=== PATIENT | female | born 1965 | race Caucasian/White ===

== ENCOUNTER 2017-02-21 18:50 | Emergency (ER) | payer SELFPAY ==
[~2017-02-21] VITALS: Ht 175.3 cm; Wt 72.8 kg
[~2017-02-21 18:50] MED LIST: ALPR1T PO; AMIT100T2 PO; AMOX500C2 PO; BIOT800T PO; CITA10TA70 PO; FLUO20CA42 PO; KETO-22 PO; LEVO75TA6; LEVO88TA54 PO; MIRT30TA6 PO; MRTZ30T1 PO; NF-CIPDEC OT; OMEP40CA36 PO; PNV1TABL9 PO; PROP1TAB77 PO; TEMA30CA6 PO; [UNRECOGNIZED DRUG - OTHER] LEFT EAR
--- NOTE | 2017-02-21 20:26 | ED EENT ---
History of Present Illness General Chief Complaint: General Problems/Pain Stated Complaint: RESTLESSNESS/L EAR DRAINAGE/BLOOD/FOUL ODOR Source: patient, RN notes reviewed Exam Limitations: no limitations History of Present Illness Time seen by provider: 20:26 Initial Comments As above and below. Patient relates a long hx of ear problems, Her ENT is apparently @ [facility]. Apparently has had her left TM patched in the past. Timing/Duration: gradual, last week Severity: moderate Location: ear (L) Prearrival Treatment: no prearrival treatment Modifying Factors: Improves With Other (none) Associated Symptoms: ear drainage Allergies and Home Medications Allergies Coded Allergies: codeine (Unverified Allergy, Mild, HIVES, VOMITING, 07/02/10) hydrocodone (Unverified Allergy, Mild, HIVES, VOMITING, 07/02/10) Home Medications Alprazolam 1 Mg Tablet, 1 TAB PO HS, Ref 0 (Reported) Amitriptyline HCl 100 Mg Tablet, 100 MG PO HS, #30 (Reported) Biotin 800 Mcg Tablet, 800 MCG PO DAILY, (Reported) Ciprofloxacin HCl/Dexameth 7.5 Ml Soln, 4 DROPS OT BID for 7 Days, #1 Ref 0 Prescribed by: NASIR TAN on 02/21/172035 Fluoxetine HCl 20 Mg Capsule, 20 MG PO DAILY, (Reported) Levothyroxine Sodium 88 Mcg Tablet, 88 MCG PO DAILY, (Reported) Pnv Cmb#21/Iron/Folic Acid 1 Each Tablet, 1 EACH PO DAILY, (Reported) Review of Systems Constitutional: see HPI Ears: See HPI, Purulent Discharge (left EAC) : No Neurological: See HPI, Other (states her entire body feels restless.) All Other Systems Reviewed Negative Unless Noted: Yes (Negative excepted noted.) Past Skaepek-Ulqpsu-Snumuv Hx Patient Social History Recent Foreign Travel: No Contact w/Someone Who Travel: No Recent Hopitalizations: No Immunizations Up To Date Date of Influenza Vaccine: Aug 24, 2015 Surgeries HX Surgeries: Yes (mastoidectomy) Surgeries: Section, Hysterectomy Respiratory Hx Respiratory Disorders: No Cardiovascular Hx Cardiac Disorders: Yes (mitral valve prolapse) Neurological Hx Neurological Disorders: Yes (tremors) Reproductive System Hx Reproductive Disorders: Yes (HYSTERECTOMY) Sexually Transmitted Disease: No Genitourinary Hx Genitourinary Disorders: Yes (UTI'S) Gastrointestinal Hx Gastrointestinal Disorders: No Musculoskeletal Hx Musculoskeletal Disorders: Yes Musculoskeletal Disorders: Osteoporosis Endocrine Hx Endocrine Disorders: Yes Endocrine Disorders: Hypothyroidsim HEENT HX ENT Disorders: No Cancer Hx Cancer: No Psychosocial Hx Psychiatric Problems: Yes Behavioral Health Disorders: Anxiety, Depression Blood Transfusions Hx Blood Disorders: No Physical Exam Vital Signs Vital Sign - Last 12Hours 02/21/17 20:24 Temp 98.9 Pulse 71 Resp 16 B/P (MAP) 119/78 Pulse Ox 97 O2 Delivery Room Air General Appearance: WD/WN, no apparent distress Ears: left ear TM dull (left), left ear other (may be leaking around TM attachment to her EAC from approx. 6p-9p) Cardiovascular: regular rate, rhythm Neurologic/Psychiatric: alert, normal mood/affect Skin: warm/dry Progress/Results/Core Measures Progress Note : Progress Note Patient hasn't taken her Elavil for the last week, but this is most likely the reason behind her body feeling restless. Can not just stop these kind of medicines cold turkey. Departure Impression Impression: Primary Impression: Non compliance w medication regimen Additional Impression: Acute exacerbation of chronic otitis media Disposition: 01 HOME, SELF-CARE Condition: Stable Departure-Patient Inst. Decision time for Depature: 20:32 Referrals: [facility] (PCP/Family) Primary Care Physician Patient Instructions: Ear Infections (Otitis Media) (DC), Prescription Drug Withdrawal (DC) Add. Discharge Instructions: All discharge instructions reviewed with patient and/or family. Voiced understanding. NEED TO GET BACK ON YOUR ROUTINE MEDICATIONS DIRECTED. STOPPING THEM COLD TURKEY IS MOST LIKELY THE REASON BEHIND A NUMBER OF YOUR SYMPTOMS. Scripts Ciprofloxacin HCl/Dexameth (Ciprodex Otic Suspension) 7.5 Ml Soln 4 DROPS OT BID for 7 Days, #1 DROPS 0 Refills Prov: NASIR TAN DO 02/21/17 NASIR TAN DO February 21, 2017 20:26
[2017-02-21] MEDS ORDERED: NF-CIPDEC OT (20:36)
[2017-02-21 20:50] VITALS: BP 119/78
== END 2017-02-21 20:50 | disposition home or self-care (01) ==
LOC: EDUNIT# 18:50 → ER 18:52
DX: H66.92 Otitis media, unspecified, left ear (principal); I10 Essential (primary) hypertension; Z79.899 Other long term (current) drug therapy; Z91.14 Patient's other noncompliance with medication regimen
CPT/HCPCS: 99282

== ENCOUNTER → 2019-03-14 | Outpatient (CLI) | payer BC, OTHER | LOC: CARD 12:37 | PROVIDERS: ATTEND Internal Medicine Cardiovascular Disease | DX: R07.89 Other chest pain (principal); E78.2 Mixed hyperlipidemia; I07.1 Rheumatic tricuspid insufficiency; F31.9 Bipolar disorder, unspecified | CPT/HCPCS: 93306; 93351 ==

== ENCOUNTER 2020-11-27 06:47 | Emergency (ER) | payer OTHER ==
[~2020-11-27] VITALS: Ht 170 cm; Wt 54.0 kg
[~2020-11-27 06:47] MED LIST changes: +OMEP40CA27 PO; -OMEP40CA36 PO
[2020-11-27] MEDS ORDERED: KETOROLAC 30 MG/ML VIAL IVP ONE (07:15)
[2020-11-27] MEDS ORDERED: NS IV 1000 ML 1,000 ML IV SCH (07:15)
[2020-11-27] MEDS ORDERED: ONDANSETRON 4 MG/2 ML (SDV) Z0FRAN IVP ONE (07:15)
--- NOTE | 2020-11-27 07:20 | ED Abdominal Pain ---
General Chief Complaint: Abdominal/GI Problems Stated Complaint: ABD PAIN Nursing Triage Note: ARRIVED VIA AMB WITH COMPLAINTS OF RIGHT LOWER ABD PAIN THAT RADIATES INTO BACK X3 DAYS. STATES SHE HAS BEEN RUNNING A LOW GRADE FEVER. Sepsis Screen: No Definite Risk Source of Information: Patient Exam Limitations: No Limitations History of Present Illness Date Seen by Provider: Nov 27, 2020 Time Seen by Provider: 07:10 Initial Comments Patient is a 55-year-old female who presents to the emergency department today with a chief complaint of right flank pain. Patient states onset of symptoms approximately 2 days ago. Patient has had some nausea. She states nothing really makes her pain any better or any worse. She is taken some ibuprofen without relief of symptoms. Patient states that she has not eaten any food this morning she has had a little bit of Gatorade. Her last meal was around 5 PM last night. Patient denies any black or bloody stools or diarrheal stools. She denies any problems with urination. She denies darker than normal urine. Patient has never had pain like this before. She does state that 2 of her children have a history of kidney stones. Patient states that she believes her appendix was removed with her first . Patient is status post hysterectomy as well. Patient points to the area of the right flank radiating around into her right pelvis. Incidentally patient also reports that she has had a 20 pound weight loss over the course of the last couple of months that is unintentional. All other review of systems reviewed and negative except as stated. Timing/Duration: 2-3 Days Severity/Quality: Severe, Aching Location: RLQ, Flank (Right flank) Radiation: RLQ Activities at Onset: None Associated Symptoms: Nausea/Vomiting (Mild nausea with the pain) Allergies and Home Medications Allergies Coded Allergies: codeine (Unverified Allergy, Mild, HIVES, VOMITING, 07/02/10) hydrocodone (Unverified Allergy, Mild, HIVES, VOMITING, 07/02/10) Home Medications Alprazolam 1 Mg Tablet, 1 TAB PO HS, (Reported) Amitriptyline HCl 100 Mg Tablet, 100 MG PO HS, (Reported) Biotin 800 Mcg Tablet, 800 MCG PO DAILY, (Reported) Ciprofloxacin HCl/Dexameth 7.5 Ml Soln, 4 DROPS OT BID Prescribed by: NASIR TAN on 02/21/172035 Fluoxetine HCl 20 Mg Capsule, 20 MG PO DAILY, (Reported) Levothyroxine Sodium 88 Mcg Tablet, 88 MCG PO DAILY, (Reported) Pnv Cmb#21/Iron/Folic Acid 1 Each Tablet, 1 EACH PO DAILY, (Reported) Patient Home Medication List Home Medication List Reviewed: Yes Review of Systems Review of Systems Constitutional: see HPI EENTM: No Symptoms Reported Respiratory: No Symptoms Reported Cardiovascular: No Symptoms Reported Gastrointestinal: Abdomen Distended (Patient states her abdomen is a little "bloated"), Abdominal Pain, Nausea Genitourinary: No Symptoms Reported Musculoskeletal: no symptoms reported Skin: no symptoms reported All Other Systems Reviewed Negative Unless Noted: Yes Past Zlzboue-Sqqnwp-Igcngj Hx Patient Social History Alcohol Use: Denies Use Smoking Status: Unknown if Ever Smoked 2nd Hand Smoke Exposure: No Recent Infectious Disease Expo: No Recent Hopitalizations: No Immunizations Up To Date Date of Influenza Vaccine: Aug 24, 2015 Past Medical History Surgeries: Yes (mastoidectomy) Section, Hysterectomy Respiratory: No Cardiac: Yes (mitral valve prolapse) Neurological: Yes (tremors) Reproductive Disorders: Yes (HYSTERECTOMY) Sexually Transmitted Disease: No Gastrointestinal: No Musculoskeletal: Yes Osteoporosis Endocrine: Yes Hypothyroidsim Cancer: No Psychosocial: Yes Anxiety, Depression Blood Disorders: No Physical Exam Vital Signs Vital Signs - First Documented 11/27/20 07:00 Temp 35.6 Pulse 75 Resp 16 B/P (MAP) 132/89 (103) Pulse Ox 98 O2 Delivery Room Air Capillary Refill : Less Than 3 Seconds Height/Weight/BMI Height: 5'9" Weight: 160lbs. 7.0oz. 72.106204rp; 18.00 BMI Method:Stated General Appearance: WD/WN, moderate distress Neck: normal inspection Respiratory: lungs clear, normal breath sounds, no respiratory distress Cardiovascular: regular rate, rhythm Gastrointestinal: normal bowel sounds, soft, tenderness (Very mild tenderness in the right lower quadrant, no rebound, guarding, not tender at McBurney's point, negative Rovsing's, negative heeltap) Extremities: non-tender, normal inspection, no pedal edema, no calf tenderness Neurologic/Psychiatric: alert, normal mood/affect, oriented x 3 Skin: normal color, warm/dry Progress/Results/Core Measures Results/Orders Lab Results Laboratory Tests Test 11/27/20 07:17 11/27/20 07:20 Range/Units Urine Color YELLOW Urine Clarity CLEAR Urine pH 6.5 5-9 Urine Specific [place] 1.010 L 1.016-1.022 Urine Protein NEGATIVE NEGATIVE Urine Glucose (UA) NEGATIVE NEGATIVE Urine Ketones NEGATIVE NEGATIVE Urine Nitrite NEGATIVE NEGATIVE Urine Bilirubin NEGATIVE NEGATIVE Urine Urobilinogen 0.2 < = 1.0 MG/DL Urine Leukocyte Esterase TRACE H NEGATIVE Urine RBC (Auto) TRACE-L NEGATIVE Urine RBC 0-2 /HPF Urine WBC 0-2 /HPF Urine Squamous Epithelial Cells 2-5 /HPF Urine Crystals NONE /LPF Urine Bacteria NEGATIVE /HPF Urine Casts NONE /LPF Urine Mucus NEGATIVE /LPF Urine Culture Indicated NO White Blood Count 12.2 H 4.3-11.0 10^3/uL Red Blood Count 4.77 3.80-5.11 10^6/uL Hemoglobin 15.0 11.5-16.0 g/dL Hematocrit 44 35-52 % Mean Corpuscular Volume 91 80-99 fL Mean Corpuscular Hemoglobin 31 25-34 pg Mean Corpuscular Hemoglobin Concent 34 32-36 g/dL Red Cell Distribution Width 12.2 10.0-14.5 % Platelet Count 217 130-400 10^3/uL Mean Platelet Volume 10.7 9.0-12.2 fL Immature Granulocyte % (Auto) 0 % Neutrophils (%) (Auto) 68 42-75 % Lymphocytes (%) (Auto) 21 12-44 % Monocytes (%) (Auto) 8 0-12 % Eosinophils (%) (Auto) 3 0-10 % Basophils (%) (Auto) 1 0-10 % Neutrophils # (Auto) 8.3 H 1.8-7.8 10^3/uL Lymphocytes # (Auto) 2.6 1.0-4.0 10^3/uL Monocytes # (Auto) 0.9 0.0-1.0 10^3/uL Eosinophils # (Auto) 0.3 0.0-0.3 10^3/uL Basophils # (Auto) 0.1 0.0-0.1 10^3/uL Immature Granulocyte # (Auto) 0.0 0.0-0.1 10^3/uL Sodium Level 141 135-145 MMOL/L Potassium Level 4.1 3.6-5.0 MMOL/L Chloride Level 106 98-107 MMOL/L Carbon Dioxide Level 24 21-32 MMOL/L Anion Gap 11 5-14 MMOL/L Blood Urea Nitrogen 15 7-18 MG/DL Creatinine 0.79 0.60-1.30 MG/DL Estimat Glomerular Filtration Rate > 60 BUN/Creatinine Ratio 19 Glucose Level 115 H 70-105 MG/DL Calcium Level 9.3 8.5-10.1 MG/DL My Orders Orders - LUZ MARINA MCMANUS MD Ed Iv/Invasive Line Start (11/27/20 07:14) Cbc With Automated Diff (11/27/20 07:14) Basic Metabolic Panel (11/27/20 07:14) Ua Culture If Indicated (11/27/20 07:14) Ns Iv 1000 Ml (Sodium Chloride 0.9%) (11/27/20 07:15) Ketorolac Injection (Toradol Injection) (11/27/20 07:15) Ondansetron Injection (Zofran Injectio (11/27/20 07:15) Ct Abd/Pelvis Wo(Kidney Stone) (11/27/20 07:36) Morphine Injection (Morphine Injection (11/27/20 08:07) Morphine Injection (Morphine Injection (11/27/20 08:05) Medications Given in ED Current Medications Medications Dose Ordered Sig/Margarita Route Start Time Stop Time Status Last Admin Dose Admin Ketorolac Tromethamine 15 mg ONCE ONCE IVP 11/27/20 07:15 11/27/20 07:16 DC 11/27/20 07:25 15 MG Ondansetron HCl 4 mg ONCE ONCE IVP 11/27/20 07:15 11/27/20 07:16 DC 11/27/20 07:25 4 MG Vital Signs/I&O 11/27/20 11/27/20 07:00 09:36 Temp 35.6 Pulse 75 81 Resp 16 16 B/P (MAP) 132/89 (103) 107/72 Pulse Ox 98 97 O2 Delivery Room Air Room Air Blood Pressure Mean: 103 Progress Progress Note : Time: 09:23 Progress Note Patient seen and examined, 55-year-old with right lower quadrant/hip/flank pain. Evaluation today includes a physical exam, CBC, BMP, urinalysis and CT scan of the abdomen and pelvis without contrast. Patient is treated in the emergency department with Toradol and 2 mg of morphine. She achieved significant relief of symptoms and describes her pain now as "very dull". She states it is not all the way gone she is just aware that it is in that area. Patient's labs are unremarkable her white count is mildly elevated at 12.3. BMP is negative, urinalysis is negative and CT scan of the abdomen and pelvis does not demonstrate any acute intra-abdominal or pelvic pathology. Specifically there is no evidence of kidney stone, mass or space-occupying lesion, free fluid. She does have quite a bit of stool in her ascending and transverse colon. Looks like she might have a little bit of diverticulosis. She is not currently having diarrhea nor fever nor bloody stools so I doubt that she has any brewing diverticulitis. I went over return precautions with Ms. Ellison including if she gets a fever, worsening pain, vomiting, any other emergent concerning symptoms she should come back to the emergency room within the next 12 to 24 hours for reevaluation. She verbalizes understanding. All questions are sought and answered. She is going to take some naproxen at home for pain. Patient is stable for discharge. Diagnostic Imaging Diagonstic Imaging: CT Plain Films/CT/US/NM/MRI: abdomen, pelvis Comments [facility] [place], [place] NAME: JESU ELLISON [facility] REC#: [id number] PT STATUS: REG ER : 1965 PHYSICIAN: LUZ MARINA MCMANUS MD ADMIT DATE: 11/27/20/ER Draft Date of Exam:11/27/20 CT ABD/PELVIS WO(KIDNEY STONE) INDICATION: Right flank pain. TECHNIQUE: Multiple contiguous axial images were obtained through the abdomen and pelvis without the use of intravenous contrast. Auto Exposure Controls were utilized during the CT exam to meet ALARA standards for radiation dose reduction. CT is compared with 09/09/2015 Visualized portions of the lung bases are clear. There were no pleural fluid collections. There is no free intraperitoneal air. The liver shows no focal lesion without contrast. Gallbladder appears unremarkable. The spleen, adrenals, and pancreas appear normal without contrast. Kidneys bilaterally show no stones or hydronephrosis. There is no retroperitoneal mass or adenopathy. There is some mild atherosclerotic calcifications of aorta and iliac vessels, without evidence of aneurysm. There is no pelvic mass or lymphadenopathy. There is no free fluid in the pelvis. Uterus appears absent. There is no adnexal lesion. Visualized bowel loops show no sign of bowel obstruction or focal bowel wall thickening. There is prominent stool in the colon IMPRESSION: Evidence of previous hysterectomy. There is no abdominal mass or abnormal fluid collection or overt focal inflammatory process. There is prominent stool throughout the colon. Dictated on workstation # [id number] Dict: 11/27/2029 Trans: 11/27/20 0837 CV [id number] Interpreted by: CRISTHIAN GUIDO MD Electronically signed by: Departure Impression Primary Impression: Abdominal pain Qualified Codes: R10.31 - Right lower quadrant pain Disposition: HOME, SELF-CARE Condition: Stable Departure-Patient Inst. Decision time for Depature: 09:25 Referrals: TANA ALVAREZ MD (PCP) Primary Care Physician [facility] (Family) Primary Care Physician Patient Instructions: Severe Abdominal Pain, Adult (DC) Add. Discharge Instructions: Drink plenty of fluids to stay well-hydrated. Take some dnpo-ngc-nzfnwjk mag citrate to help clean out your colon. Take prqh-dje-mljzgyd naproxen or Aleve 2 pills with food, twice daily as needed for pain. If you have a return of or worsening pain, especially fever, vomiting or any other emergent concerns please come back to the emergency department for reevaluation. Copy Copies To 1: MAURY VARELA KATHRYN M MD Nov 27, 2020 07:20
[2020-11-27 07:22] LABS: BILIRUBIN,URINE NEGATIVE (NEGATIVE); CLARITY,URINE CLEAR; COLOR,URINE YELLOW; GLUCOSE, URINE (UA) NEGATIVE (NEGATIVE); KETONES,URINE NEGATIVE (NEGATIVE); LEUKOCYTE ESTERASE ,URINE TRACE (NEGATIVE); NITRITE,URINE NEGATIVE (NEGATIVE); PH,URINE 6.5 (5-9); PROTEIN,URINE NEGATIVE (NEGATIVE)
[2020-11-27 07:27] LABS: BASOPHILS # (AUTO) 0.1 10^3/uL (0.0-0.1); BASOPHILS % (AUTO) 1 % (0-10); EOSINOPHILS # (AUTO) 0.3 10^3/uL (0.0-0.3); EOSINOPHILS % (AUTO) 3 % (0-10); HEMATOCRIT 44 % (35-52); LYMPHOCYTES # (AUTO) 2.6 10^3/uL (1.0-4.0); LYMPHOCYTES % (AUTO) 21 % (12-44); MEAN CORPUSCULAR HEMOGLOBIN 31 pg (25-34); MEAN CORPUSCULAR HGB CONC 34 g/dL (32-36); MEAN CORPUSCULAR VOLUME 91 fL (80-99); MEAN PLATELET VOLUME 10.7 fL (9.0-12.2); MONOCYTES # (AUTO) 0.9 10^3/uL (0.0-1.0); MONOCYTES % (AUTO) 8 % (0-12); NEUTROPHILS # (AUTO) 8.3 10^3/uL (1.8-7.8); NEUTROPHILS % (AUTO) 68 % (42-75); PLATELET COUNT 217 10^3/uL (130-400); WHITE BLOOD COUNT 12.2 10^3/uL (4.3-11.0)
[2020-11-27 07:29] LABS: BACTERIA,URINE NEGATIVE /HPF; RBC,URINE 0-2 /HPF; WBC,URINE 0-2 /HPF
[2020-11-27 07:37] LABS: CHLORIDE 106 MMOL/L (98-107); POTASSIUM 4.1 MMOL/L (3.6-5.0); SODIUM 141 MMOL/L (135-145)
[2020-11-27 07:38] LABS: CALCIUM 9.3 MG/DL (8.5-10.1); GLUCOSE 115 MG/DL (70-105)
[2020-11-27 07:40] LABS: CARBON DIOXIDE 24 MMOL/L (21-32)
[2020-11-27 07:42] LABS: CREATININE SERUM 0.79 MG/DL (0.60-1.30); GFR ESTIMATED > 60
[2020-11-27 07:43] LABS: BUN/CREATININE RATIO 19
[2020-11-27] MEDS ORDERED: morphine INJ 10 MG/ML 1ML (SYR OR VIAL) ONE (08:05)
[2020-11-27] MEDS ORDERED: morphine INJ 10 MG/ML 1ML (SYR OR VIAL) IVP STA (08:07)
--- NOTE | 2020-11-27 08:39 | Diagnostic Imaging Report ---
INDICATION: Right flank pain. TECHNIQUE: Multiple contiguous axial images were obtained through the abdomen and pelvis without the use of intravenous contrast. Auto Exposure Controls were utilized during the CT exam to meet ALARA standards for radiation dose reduction. CT is compared with 09/09/2015 Visualized portions of the lung bases are clear. There were no pleural fluid collections. There is no free intraperitoneal air. The liver shows no focal lesion without contrast. Gallbladder appears unremarkable. The spleen, adrenals, and pancreas appear normal without contrast. Kidneys bilaterally show no stones or hydronephrosis. There is no retroperitoneal mass or adenopathy. There is some mild atherosclerotic calcifications of aorta and iliac vessels, without evidence of aneurysm. There is no pelvic mass or lymphadenopathy. There is no free fluid in the pelvis. Uterus appears absent. There is no adnexal lesion. Visualized bowel loops show no sign of bowel obstruction or focal bowel wall thickening. There is prominent stool in the colon IMPRESSION: Evidence of previous hysterectomy. There is no abdominal mass or abnormal fluid collection or overt focal inflammatory process. There is prominent stool throughout the colon. Dictated by: Dictated on workstation # [id number]
[2020-11-27 09:36] VITALS: BP 107/72
== END 2020-11-27 09:36 | disposition home or self-care (01) ==
LOC: EDUNIT# 06:47 → ER 06:50
DX: R10.13 Epigastric pain (principal); E03.9 Hypothyroidism, unspecified; F41.9 Anxiety disorder, unspecified; F32.9 Major depressive disorder, single episode, unspecified; Z88.5 Allergy status to narcotic agent; Z79.890 Hormone replacement therapy
CPT/HCPCS: 36415; 74176; 80048; 81000; 85025

== ENCOUNTER → 2021-02-06 | Outpatient (CLI) | payer OTHER ==
[~2021-02-06] MED LIST changes: +CATHETER FLUSH 10 ML SYR IV PRN; +HOLD METFORMIN - RECEIVED CONTRAST 20 ML VIAL IV SCH; +IOHEXOL 350 MG/ML 100 ML (OMNIPAQUE 350) VIAL IV ONE; +NS 100 ML (IVPB) BAG IV ONE
--- NOTE | 2021-02-06 10:49 | Diagnostic Imaging Report ---
PROCEDURE: CT chest and abdomen with contrast. TECHNIQUE: Multiple contiguous axial images were obtained through the chest and abdomen after the administration of intravenous contrast. Auto Exposure Controls were utilized during the CT exam to meet ALARA standards for radiation dose reduction. INDICATION: Shortness of breath and weight loss as well as abdominal pain. COMPARISON: Correlation is made with prior CT chest from 04/07/[address] abdomen from 11/27/2020. FINDINGS: CT CHEST: No axillary, hilar, or mediastinal lymphadenopathy is detected. No pericardial or pleural fluid is identified. No pulmonary infiltrates, nodules, or masses are identified. There is mild biapical pleural parenchymal scarring. The bony structures are nonacute. IMPRESSION: Unremarkable CT of the chest. CT ABDOMEN: No discrete liver mass is identified. Gallbladder is unremarkable. Pancreas and spleen are unremarkable. No adrenal mass is detected. Kidneys appear unremarkable, although there may be a tiny nonobstructing calculus in the lower pole on the left. Aorta is calcified but nonaneurysmal. No central retroperitoneal or mesenteric lymphadenopathy is identified. Small and large bowel loops are normal in caliber. There is no obstruction. There is no free fluid. Bony structures are unremarkable. IMPRESSION: 1. Probable tiny nonobstructing left renal calculus. 2. Otherwise, unremarkable CT abdomen and pelvis study. No acute feature is detected. Dictated by: Dictated on workstation # [id number]
== END ==
LOC: RAD 09:19
PROVIDERS: ATTEND Physician Assistant
DX: J18.9 Pneumonia, unspecified organism (principal); R63.4 Abnormal weight loss; R10.13 Epigastric pain
CPT/HCPCS: 71260; 74160

== ENCOUNTER → 2021-03-09 | Outpatient (CLI) | payer OTHER ==
[~2021-03-09] MED LIST changes: -CATHETER FLUSH 10 ML SYR IV PRN; -HOLD METFORMIN - RECEIVED CONTRAST 20 ML VIAL IV SCH; -IOHEXOL 350 MG/ML 100 ML (OMNIPAQUE 350) VIAL IV ONE; -NS 100 ML (IVPB) BAG IV ONE
--- NOTE | 2021-03-09 12:02 | Diagnostic Imaging Report ---
INDICATION: Routine screening. 2-D and 3-D bilateral screening mammography was performed with CAD. Both breasts are heterogeneously dense, limiting the sensitivity of mammography. No mass or malignant appearing microcalcifications are seen. Axillae are unremarkable. IMPRESSION: BI-RADS Category 1 No mammographic features suspicious for malignancy are identified. ACR BI-RADS Category 1: Negative. Result letter will be mailed to the patient. Note: At least 10% of breast cancer is not imaged by mammography. Dictated by: Dictated on workstation # [id number]
== END ==
LOC: RAD 09:11
PROVIDERS: ATTEND Physician Assistant
DX: Z12.31 Encounter for screening mammogram for malignant neoplasm of breast (principal)
CPT/HCPCS: 77063; 77067